=== PATIENT | female | born 1955 | race Caucasian/White ===

== ENCOUNTER 2019-03-22 17:22 | Emergency (ER) | payer MEDICARE ==
[~2019-03-22] VITALS: Ht 152.4 cm; Wt 90.0 kg
[2019-03-22 17:22] VITALS: BP 137/93
[2019-03-22] MEDS ORDERED: METF500T13 PO (17:32)
[2019-03-22] MEDS ORDERED: LEVO75TA4 (17:32)
[2019-03-22] MEDS ORDERED: ATOR1TAB21 PO (17:33)
[2019-03-22] MEDS ORDERED: ASPI81TA21 PO (17:33)
[2019-03-22 18:40] LABS: BASO # 0.1 10^3/uL (0.0-0.2); BASO % 0.6 % (0.0-1.0); EOS # 0.1 10^3/uL (0.0-0.5); HEMATOCRIT 42.6 % (36.0-47.0); HEMOGLOBIN 13.3 g/dl (12.0-15.5); LYMPH # 2.7 10^3/uL (1.5-5.0); LYMPH % 33.1 % (24.0-44.0); MEAN CORPUSCULAR HEMOGLOBIN 28.9 pg (27.0-33.0); MEAN CORPUSCULAR HGB CONC 31.2 g/dl (32.0-36.5); MEAN CORPUSCULAR VOLUME 92.6 fl (80.0-96.0); MONO # 0.5 10^3/uL (0.0-0.8); MONO % 6.3 % (0.0-5.0); NEUTROPHILS # 4.7 10^3/uL (1.5-8.5); NEUTROPHILS % 58.9 % (36.0-66.0); PLATELET COUNT, AUTOMATED 237 10^3/uL (150-450); WHITE BLOOD COUNT 8.1 10^3/uL (4.0-10.0)
[2019-03-22] MEDS ORDERED: ELIQ5TAB PO (19:24)
[2019-03-22 19:37] LABS: INR 1.01; PARTIAL THROMBOPLASTIN TIME 25.8 SECONDS (25.0-38.4)
== END 2019-03-22 19:39 | disposition home or self-care (01) ==
LOC: M ED 17:22
DX: I82.431 Acute embolism and thrombosis of right popliteal vein (principal); E11.9 Type 2 diabetes mellitus without complications; E78.5 Hyperlipidemia, unspecified; Z79.82 Long term (current) use of aspirin; Z79.84 Long term (current) use of oral hypoglycemic drugs; Z79.899 Other long term (current) drug therapy; Z88.2 Allergy status to sulfonamides

== ENCOUNTER → 2019-03-22 | Outpatient (CLI) | payer MEDICARE ==
[~2019-03-22] MED LIST: ASPI81TA21 PO; ATOR1TAB21 PO; ELIQ5TAB PO; LEVO75TA4; METF500T13 PO
--- NOTE | 2019-03-22 15:59 | REP ---
Clinical: Venous insufficiency . Technique: Belcher scale and color Doppler evaluation using linear high frequency transducer with reflux evaluation . Findings: Ultrasound examination of the right lower extremity deep venous structures from the common femoral vein to the popliteal vein demonstrates normal compressibility flow and wave patterns in response to respiration and augmentation. There is no evidence for deep venous thrombosis. The greater saphenous vein has been removed. Just above the level of the resection, the residual portion of the proximal greater saphenous vein demonstrates collateral vessel leading to multiple varicosities towards the distal medial thigh with perceptible reflux. Reflux is also noted through the deep system including common femoral vein, superficial femoral vein and popliteal vein. Impression: No evidence for deep venous thrombosis. Reflux and varicosities as noted above. Electronically Signed by Brenden Wilde MD 03/22/2019 03:51 P
== END ==
LOC: M RAD 14:19
PROVIDERS: ATTEND Surgery
DX: I82.431 Acute embolism and thrombosis of right popliteal vein (principal); I83.891 Varicose veins of right lower extremity with other complications

== ENCOUNTER 2024-07-03 09:26 | Outpatient (RCR) | payer MEDICARE | END 2024-07-21 | LOC: M PT 09:26 | PROVIDERS: ATTEND Nurse Practitioner | DX: I89.0 Lymphedema, not elsewhere classified (principal); I87.2 Venous insufficiency (chronic) (peripheral) ==

== ENCOUNTER 2024-08-11 12:00 | Outpatient (RCR) | payer MEDICARE | END 2024-08-21 | LOC: M PT 12:00 | PROVIDERS: ATTEND Nurse Practitioner | DX: I89.0 Lymphedema, not elsewhere classified (principal); I87.2 Venous insufficiency (chronic) (peripheral) ==

== ENCOUNTER 2024-08-23 15:14 | Outpatient (RCR) | payer MEDICARE | END 2024-09-20 | LOC: M PT 15:14 | PROVIDERS: ATTEND Nurse Practitioner | DX: R60.0 Localized edema (principal); I87.2 Venous insufficiency (chronic) (peripheral); M79.604 Pain in right leg ==

== ENCOUNTER 2025-04-06 09:09 | Outpatient (RCR) | payer MEDICARE | END 2025-04-22 | LOC: M PT 09:09 | PROVIDERS: ATTEND Nurse Practitioner | DX: R60.0 Localized edema (principal); I87.2 Venous insufficiency (chronic) (peripheral); M79.604 Pain in right leg ==